=== PATIENT | male | born 1955 | race Caucasian/White ===

== ENCOUNTER 2019-07-20 10:57 | Inpatient (IN) | payer OTHER, SELFPAY ==
[2019-07-20] VITALS (22 sets, daily range): BP systolic 103–157; BP diastolic 59–79; PULSE 48–82; RESP 15–22; TEMP 36.7–37.6; O2SAT 8–99; BMI 22.8
--- NOTE | 2019-07-20 11:11 | ED_ITS ---
HPI - SOB/Dyspnea General: Chief Complaint: Fall Stated Complaint: FELL OFF LADDER AND RIB PAIN Time Seen by Provider: 07/20/19 11:02 History of Present Illness: HPI Narrative: 63-year-old male presents to the emergency room with complaint of shortness of breath after chest trauma yesterday. He was moving a truss down off of a building he was on a ladder this truss swung and caught him on the left side of his chest and he has been short of breath since then he did not seek medical care immediately. He thinks he may have been knocked out for a short period of time or just severely stunned. He did not actually strike his head he did get the wind knocked out of him. He is not had any significant hemoptysis but he is does smoke daily and he had a little bit of slightly blood-tinged mucus one time overnight. MD elicited complaint: shortness of breath, cough and pain with inspiration Pertinent past history: COPD Context: trauma/injury Timing: constant Severity: severe Exacerbating factors: exertion, movement, coughing and inspiration Relieving factors: rest Known history of: COPD Associated symptoms: Reports no associated symptoms; Deny abdominal pain, chest pain, fever(s), nausea, orthopnea or vomiting Review of Systems Const: Denies: fever, chills, body aches, change in appetite, fatigue or malaise ENMT: Denies: throat pain, ear pain, nasal discharge or nasal congestion Card: Denies: chest pain, edema, shortness of breath on exertion or shortness of breath when lying down Resp: Denies: shortness of breath, productive cough or non-productive cough GI: Denies: abdominal pain, nausea, vomiting, vomiting blood, coffee grounds in vomit, diarrhea, constipation, bloating, blood in stool or black tarry stool : Denies: flank pain, painful urination, urinary frequency or urinary urgency Skin/Breast: Denies: rash or itching PFSH ED PFSH: Medical History (Updated 07/21/19 @ 06:26 by Nigel Stover DO) Traumatic pneumothorax without open wound into thorax Social History Smoking and tobacco status: current every day smoker Physical Exam Const: COMMON NORMALS: no apparent distress GENERAL APPEARANCE: cooperative and comfortable ORIENTATION/CONSCIOUSNESS: Yes awake, Yes oriented to person, Yes oriented to place and Yes oriented to time HENMT: COMMON NORMALS: normocephalic, head/scalp atraumatic, hearing grossly normal bilaterally, external ears normal, EAC's normal, TM's normal bilaterally, nasal mucous membranes and turbinates normal, moist oral mucous membranes and oropharynx normal HEAD & SCALP: normocephalic and atraumatic NOSE: nasal mucous membranes and turbinates normal EXTERNAL EAR: Yes external ears normal EXTERNAL AUDITORY CANAL: EAC's normal TYMPANIC MEMBRANE: TM's normal bilaterally Eye: COMMON NORMALS: PERRL, EOMs intact bilaterally, conjunctivae normal and no scleral icterus CONJUNCTIVA: Yes conjunctivae normal PUPIL: Yes PERRL Neck/C-Spine: COMMON NORMALS: full ROM, no lymphadenopathy, supple and no JVD Lymph: LYMPHATIC: no lymphadenopathy noted and no lymphedema noted Resp: COMMON NORMALS: no use of accessory muscles AUSCULTATION: breath sounds absent on the right OTHER: Breath sounds clear on the left on the right they are absent with a few subcutaneous crackles present palpable pierce bcutaneous emphysema noted there is no deviation of the trachea. Chest x-ray shows large pneumothorax. Cardio: COMMON NORMALS: no JVD, regular rate, regular rhythm and no murmurs RATE: regular rate RHYTHM: regular rhythm GI: COMMON NORMALS: soft to palpation and no hepatosplenomegaly AUSCULTATION: Yes normoactive bowel sounds PALPATION: Yes soft, No tender, No guarding and Yes no hepatosplenomegaly Extremity: COMMON NORMALS: normal to inspection, normal capillary refill, no clubbing, cyanosis or edema, no calf tenderness and no pedal edema Neuro: SENSORIUM/ORIENTATION: Yes oriented to person, Yes oriented to place and Yes oriented to time Skin: COMMON NORMALS: no rashes or lesions noted GENERAL SKIN EXAM: no rashes or lesions noted Procedures Chest Tube Chest Tube 1: Chest Tube Location: right, anterior axillary line and fourth interspace Size of Tube (cm): 32 Chest Tube Prep: Yes betadine prep and sterile drapes applied Local Anesthetic: lidocaine 1% and with epi Amount of anesthesia used (mL): 7 Incision Made With: #10 blade Post Procedure: sutured to skin and sterile dressing applied Tube Drainage: none Post Procedure CXR?: Yes Patient Tolerated Procedure: Yes Procedural Sedation Indication: other (Chest tube placement) Presedation Evaluation: Patient awake alert and oriented answers questions appropriately. Expresses understanding wishes to proceed ASA Class: I Preparation: cupola worker applied, pulse oximeter, supplemental O2 applied, suction/airway equipment at bedside and IV secured Fentanyl: IV Fentanyl dose (mcg): 10 Midazolam: IV Midazolam dose (mg): 5 Patient Tolerated Procedure: well Complications: none Course Vital Signs: Vital signs: Vital Signs Temperature 97.6 F 07/21/19 04:00 Pulse Rate 46 L 07/21/19 04:00 Respiratory Rate 12 07/21/19 04:00 Blood Pressure 122/65 07/21/19 04:00 Pulse Oximetry 98 07/21/19 04:00 MDM - SOB/Dyspnea MDM Narrative: Medical decision making narrative: On initial exam patient had evidence of a pneumothorax on the right with subcutaneous air and absent breath sounds this is confirmed by chest x-ray. Patient was tolerating well but obviously would require chest tube to reinflate the lung. Procedural sedation was done as well as local 32 Bulgarian chest tube placed patient tolerated well post procedure x-ray shows a chest tube in good position with good reinflation of the long. Continued pain medications Dr. Ariza is agreed to accept the patient and monitor in the ICU. Lab Data: Labs: Lab Results 07/20/19 07/20/19 Range/Units 11:00 11:00 WBC 12.9 H (4.0-10.0) 10^3/ uL RBC 5.01 (4.1-5.3) 10^6/u L Hgb 15.8 (11.7-16.6) g/dL Hct 47.6 (42.0-52.0) % MCV 95.0 H (80-94) fL MCH 31.5 (28.0-34.0) pg MCHC 33.2 (30.0-36.0) g/dL RDW 12.8 (12.1-15.1) % Plt Count 216 (130-400) 10^3/c mm MPV 11.3 H (7.4-10.4) fL Neut % (Auto) 79.5 % Lymph % (Auto) 11.2 % [place] % (Auto) 8.7 % Eos % (Auto) 0.1 % Baso % (Auto) 0.2 % Neut # (Auto) 10.2 H (1.8-7.7) 10^3/u L Lymph # (Auto) 1.5 (0.8-4.8) 10^3/u L [place] # (Auto) 1.1 H (0.2-0.9) 10^3/u L Eos # (Auto) 0.0 (0.0-0.8) 10^3/u L Baso # (Auto) 0.0 (0.0-0.1) 10^3/u L Nucleated RBC % (a uto) 0 % Nucleated RBCs # 0.0 /100WBC Sodium 138 (136-145) mmol/L Potassium 3.9 (3.5-5.1) mmol/L Chloride 99 (98-107) mmol/L Carbon Dioxide 24 (22-29) mmol/L Anion Gap 18.9 (5-19) BUN 18 (8-23) mg/dL Creatinine 1.1 (0.7-1.2) mg/dL GFR Calculation 67.8 L (90-130) mL/min Glucose 120 H (65-115) mg/dL Calculated Osmolal ity 284 L (285-295) mOsm/k g Calcium 10.6 H (8.5-10.5) mg/dL Total Bilirubin 0.9 (0.15-1.2) mg/dL AST 51 H (0-40) U/L ALT 40 (0-41) U/L Alkaline Phosphata se 84 (40-130) IU/L Total Protein 7.6 (6.6-8.7) g/dL Albumin 4.7 (3.5-5.2) g/dL Globulin 2.9 (1.3-4.6) g/dL Discharge Plan Discharge Patient Disposition: Admitted As Inpatient Admit Provider: Martín Ariza Clinical Impression: Traumatic pneumothorax without open wound into thorax Condition: Stable Interventions: ED Discharge Assessment Last Done: 07/20/19 14:09 Discharge Date/Time: 07/20/19 16:19 Coding Level of Care Code ED Line Construction Superintendent for Morena Fwd Exam Comprehensive
--- NOTE | 2019-07-20 11:13 | XR_ITS ---
WS: [id number] CHEST XRAY TECHNIQUE: Portable chest. CLINICAL INFORMATION: dyspnea/cough COMPARISON: May 09, 2015 FINDINGS: Heart: Normal cardiac silhouette. Lungs: Large right pneumothorax with multiple right posterior rib fractures. Subcutaneous emphysema a long the right lateral chest wall. Left lung appears well aerated. Bones: Multiple right posterior rib fractures. Notified Nigel Stover DO at 07/20/2019 11:47 AM. XR/XR chest 1V portable [id number] IMPRESSION: 1. Large right pneumothorax with medial collapse of the right lung worse in th e right upper lobe. 2. Multiple right posterior rib fractures with subcutaneous emphysema.
--- NOTE | 2019-07-20 11:13 | CT_ITS ---
WS: [id number] CT HEAD TECHNIQUE: Noncontrast CT of the head obtained from the skullbase to the vertex. CLINICAL INFORMATION: LOC/trauma COMPARISON: None. DLP: 994.[address] scans at [facility] use at least one of these dose optimization techniques: automat ed exposure control; mA and/or kV adjustment per patient size (includes targeted exams where dose is matched to clinical indication); or iterative reconstruction. FINDINGS: No evidence of intracranial hemorrhage or mass effect. Ventricular system and basal cisterns are kaiser nt. Mild small vessel changes with mild parenchymal volume loss. No extra-axial fluid collections. No evidence of mass or mass effect. Normal hunter-white differentiation. Paranasal sinuses and mastoid air cells are well aerated. Subcutaneous emphysema in the right neck manasa rivera from known right large pneumothorax CT/CT head wo con* [id number] IMPRESSION: 1. No evidence of intracranial hemorrhage or mass effect. 2. Mild small vessel changes with mild parenchymal volume loss. 3. Subcutaneous emphysema in the right neck likely from known pneumothorax. 4. Soft tissue edema right parietal scalp. No visualized fractures.
--- NOTE | 2019-07-20 11:13 | ECG_ITS ---
Measurements Intervals [place] Rate: 60 P: 81 ND: 174 QRS: 90 QRSD: 118 T: 66 QT: 414 QTc: 414 SINUS RHYTHM POSSIBLE LEFT ATRIAL ENLARGEMENT [-0.1mV P WAVE IN V1/V2] INCOMPLETE RIGHT BUNDLE BRANCH BLOCK [90+ ms QRS DURATION, TERMINAL R IN V1/V2, 40+ ms S IN I/aVL/V4/V5/V6] No previous ECG available for comparison Electronically Signed On 07-21-2019 18:06:29 CDT by Juan Luis Fisher M.D. [email or web address] thomas
[2019-07-20 11:40] LABS: Basophils % 0.2 %; Eosinophils % 0.1 %; Hematocrit 47.6 % (42.0-52.0); Hemoglobin 15.8 g/dL (11.7-16.6); Lymphocytes # 1.5 10^3/uL (0.8-4.8); Lymphocytes % 11.2 %; Mean Corpuscular HGB Conc 33.2 g/dL (30.0-36.0); Mean Corpuscular Hemoglobin 31.5 pg (28.0-34.0); Mean Platelet Volume 11.3 fL (7.4-10.4); Monocytes # 1.1 10^3/uL (0.2-0.9); Monocytes % 8.7 %; Neutrophils # 10.2 10^3/uL (1.8-7.7); Neutrophils % 79.5 %; Nucleated Red Blood Cells % 0 %; Platelet Count 216 10^3/cmm (130-400); Red Blood Count 5.01 10^6/uL (4.1-5.3); Red Cell Distribution Width 12.8 % (12.1-15.1); White Blood Count 12.9 10^3/uL (4.0-10.0)
[2019-07-20 12:06] LABS: Alanine Aminotransferase 40 U/L (0-41); Albumin Level 4.7 g/dL (3.5-5.2); Alkaline Phosphatase 84 IU/L (40-130); Anion Gap 18.9 (5-19); Aspartate Amino Transferase 51 U/L (0-40); Blood Urea Nitrogen 18 mg/dL (8-23); Calcium 10.6 mg/dL (8.5-10.5); Carbon Dioxide 24 mmol/L (22-29); Chloride 99 mmol/L (98-107); Creatinine Clr Calc Pharmacy 71.5477; Globulin 2.9 g/dL (1.3-4.6); Glomerular Filtration Rate 67.8 mL/min (90-130); Glucose 120 mg/dL (65-115); Osmolality Calculated 284 mOsm/kg (285-295); Potassium 3.9 mmol/L (3.5-5.1); Sodium 138 mmol/L (136-145); Total Bilirubin 0.9 mg/dL (0.15-1.2); Total Protein 7.6 g/dL (6.6-8.7)
[2019-07-20] MEDS: fentaNYL 50 mcg/mL INJ 2mL 100 MCG IVP (12:22)
[2019-07-20] MEDS: midazolam 1 mg/mL INJ 2 mL 4 MG IVP (12:23)
--- NOTE | 2019-07-20 12:24 | XR_ITS ---
WS: [id number] CHEST XRAY TECHNIQUE: Portable chest. CLINICAL INFORMATION: post chest tube - pneumothorax COMPARISON: July 20, 2019 FINDINGS: Interval placement of right chest tube in good position. Reexpansion of the majority of the right lung. Tiny residual right anterior medial and lateral pneumothorax. Subcutaneous emphysema rig ht lateral chest wall. Multiple right posterior rib fractures. Small right pleural effusion. Subsegme ntal atelectasis right lung base. XR/XR chest 1V portable [id number] IMPRESSION: 1. Interval placement of right chest tube with reexpansion right lung. 2. Tiny residual right anterior medial and lateral pneumothorax. 3. Multiple right posterior rib fractures. 4. Subcutaneous emphysema
[2019-07-20] MEDS: morphine 4 mg/mL SDV 1 mL IVP ×3 (13:36→23:41)
[2019-07-20] MEDS: D5-NS 0.45% + KCL 20 mEq 20 MEQ/1,000 ML BAG 100 MEQ IV (14:50)
--- NOTE | 2019-07-20 15:40 | PM.HP ---
Providers/Chief Complaint Admitting Physician: Martín Ariza MD Chief Complaint: PNEUMOTHORAX History of Present Illness Murali Clarke is a 63 year old male who presented to the emergency department earlier today with complaints of shortness of breath and substantial right-sided chest discomfort. Apparently, while working on bringing down a building yesterday, he fell from a ladder after he was struck in the right side by a truss. He states he is not certain that he lost consciousness though he did note he was confused for short time. No history of hemoptysis though worsening and intense right-sided chest discomfort. Breathlessness became worse throughout the evening and therefore he presented today. He was found to have multiple posterior rib fractures from my personal review appears to be ribs 5 through 8. He had at least 50% right pneumothorax was treated with a large bore chest tube by Dr. Rosenthal. I was consulted for chest tube management of the traumatic pneumothorax which was resolved by the thoracostomy tube placement. No prior history for known lung disease. No history for pneumothorax. He does smoke substantially. No other substantial hospitalizations. He states he does utilize several herbs including mushrooms. He does smoke occasional marijuana. Presently the time of my exam, he is resting comfortably in the ICU. No substantial dyspnea. O2 saturation is good. Chest tube was waterseal though I had it placed to Pleur-evac suction. I have personally viewed the chest x-ray upon admission as well as the post thoracostomy tube placement study. Review of Systems Const: Denies: fever, chills, change in appetite, change in weight, fatigue or night sweats Eyes: Denies: change in vision or blurry vision ENMT: Denies: painful swallowing or hoarseness Card: Denies: chest pain, palpitations, irregular heart rhythm or edema Resp: Reports: shortness of breath (Except with the recent trauma yesterday. Respiratory status is much improved.); Denies: productive cough or coughing up blood GI: Denies: abdominal pain, nausea, vomiting, difficulty swallowing, heartburn/indigestion or change in bowel habits : Denies: difficulty urinating, painful urination, urinary frequency, urinary urgency or urinary hesitancy Musc: Denies: extremity pain or extremity swelling Skin/Breast: Denies: rash Neuro: Denies: headache, numbness in extremities, weakness in extremities or changes in sensation Psych: Denies: anxiety, depression or change in appetite Endo: Denies: excessive urination, excessive thirst or cold intolerance Mac/Lymph: Denies: easy bruising, easy bleeding, petechiae or enlarged lymph nodes Medications/Allergies Home Medications Medication Instructions Recorded Confirmed Last Taken Type No Known Home Medications 07/20/19 07/20/19 Unknown History Allergies Allergy/AdvReac Type Severity Reaction Status Date / Time No Known Allergies Allergy Verified 07/20/19 11:14 PFSH Acute PFSH: Medical History (Updated 07/20/19 @ 15:44 by Martín Ariza MD) Traumatic pneumothorax without open wound into thorax Social History Smoking and tobacco status: current every day smoker Vitals/I&O/Wt Last Vital Signs Temp 98.6 F 07/20/19 14:15 Pulse 59 L 07/20/19 15:33 Resp 16 07/20/19 15:31 BP 132/70 07/20/19 15:00 Pulse Ox 96 07/20/19 15:31 Weight last 48 hrs Weight 159 lb Physical Exam Const: COMMON NORMALS: oriented x3 and alert ORIENTATION/CONSCIOUSNESS: Yes oriented to person, Yes oriented to place and Yes oriented to time HENMT: COMMON NORMALS: normocephalic HEAD & SCALP: normocephalic; no cranial bruits Neck/C-Spine: COMMON NORMALS: full ROM, supple, no JVD and no carotid bruits GENERAL: Yes trachea midline CERVICAL SPINE: Yes cervical ROM normal Chest: COMMONS NORMALS: inspection of chest normal and palpation of chest normal OTHER: There is just a bit of subcutaneous emphysema on the right lateral and anterior chest wall, particularly superiorly in the infraclavicular region. This did extend to the base of the neck the previously noted radiographic studies. Trachea is midline. Resp: COMMON NORMALS: normal respiratory effort, no use of accessory muscles, clear to auscultation bilaterally and percussion normal EFFORT & INSPECTION: Yes able to speak in complete sentences and Yes symmetric chest movement AUSCULTATION: clear to auscultation bilaterally PERCUSSION: percussion normal Cardio: COMMON NORMALS: no JVD, regular rate, regular rhythm, S1 normal heart sound, S2 normal heart sound, no gallops, no murmurs, no rub and peripheral pulses 2+ throughout JUGULAR VENOUS DISTENTION: no JVD RATE: regular rate RHYTHM: regular rhythm HEART SOUNDS: S1 normal and S2 normal PERIPHERAL PULSES: pulses 2+ throughout Neuro: COMMON NORMALS: oriented x3, no focal motor deficits and no sensory deficits noted SENSORIUM/ORIENTATION: Yes alert, Yes oriented to person, Yes oriented to place and Yes oriented to time GAIT: Yes normal gait Data : 07/20/19 11:00 07/20/19 11:00 A&P Assessment and plan (1) Traumatic pneumothorax without open wound into thorax: 50% traumatic right pneumothorax following being struck by a building truss yesterday during a building demolition. Dr. Stover placed in a large bore right chest tube with resolution of his pneumothorax. Plan: Chest tube to Pleur-evac suction Chest x-ray in a.m. Toradol 30 mg IV every 6 hours as needed pain Protonix 40 mg daily SCDs to lower extremities Incentive spirometry Out of bed in chair I will assess chest x-ray tomorrow and assess for air leak. Plan to transfer to [facility] consider placing chest tube to waterseal. Greatly appreciate the assistance and expertise of Dr. Stover. Status: Acute Attestations Medical Necessity Statement*: Right pneumothorax with multiple rib fractures Time Spent in Patient Care: Greater than 35 minutes Coding Level of Care Code Acute Packer Sausage And Wiener for Morena Fwfariha Exam Detailed Diagnoses Traumatic pneumothorax without open wound into thorax S27.0XXA
[2019-07-20] MEDS: ketorolac 30 mg/mL INJ IVP (16:37)
[2019-07-20 20:40] LABS: Blood Urine Neg (Negative); Glucose Urine UA Norm (Normal); Ketones Urine 2+ (Negative); Protein Urine Neg (Negative); Specific Gravity, Urine 1.025 (1.005-1.030); Urine Appearance Clear (CLEAR); Urine Color Yellow (Yellow); pH Urine 5 (5-7)
[2019-07-20 20:41] LABS: Add Urine Culture? Yes; Add Urine Microscopic? YES; Bacteria Urine 4+; Bilirubin Urine 1+ (NEGATIVE); Leukocyte Esterase Urine Negative (Negative); Nitrate Urine Positive (Negative); Squamous Epithelial Cell Urine 0-4 (0-5); Urobilinogen Urine Norm (Negative); WBC Urine 0-4 /hpf (0-5)
[2019-07-21] VITALS (12 sets, daily range): BP systolic 111–170; BP diastolic 64–86; PULSE 46–89; RESP 12–23; TEMP 36.4–37.1; O2SAT 92–98
[2019-07-21] MEDS: D5-NS 0.45% + KCL 20 mEq 20 MEQ/1,000 ML BAG 100 MEQ IV ×2 (00:44→15:46)
[2019-07-21 05:16] LABS: Basophils % 0.3 %; Eosinophils # 0.1 10^3/uL (0.0-0.8); Eosinophils % 0.7 %; Hematocrit 41.7 % (42.0-52.0); Lymphocytes # 2.5 10^3/uL (0.8-4.8); Lymphocytes % 23.9 %; Mean Corpuscular HGB Conc 33.6 g/dL (30.0-36.0); Mean Corpuscular Hemoglobin 32.5 pg (28.0-34.0); Mean Corpuscular Volume 96.8 fL (80-94); Mean Platelet Volume 11.8 fL (7.4-10.4); Monocytes # 1.1 10^3/uL (0.2-0.9); Monocytes % 10.3 %; Neutrophils # 6.7 10^3/uL (1.8-7.7); Neutrophils % 64.5 %; Nucleated Red Blood Cells % 0 %; Platelet Count 164 10^3/cmm (130-400); Red Blood Count 4.31 10^6/uL (4.1-5.3); Red Cell Distribution Width 12.7 % (12.1-15.1); White Blood Count 10.4 10^3/uL (4.0-10.0)
[2019-07-21 05:36] LABS: Anion Gap 15.5 (5-19); Blood Urea Nitrogen 15 mg/dL (8-23); Calcium 9.7 mg/dL (8.5-10.5); Carbon Dioxide 25 mmol/L (22-29); Chloride 97 mmol/L (98-107); Glomerular Filtration Rate 85.5 mL/min (90-130); Glucose 132 mg/dL (65-115); Osmolality Calculated 274 mOsm/kg (285-295); Potassium 4.5 mmol/L (3.5-5.1); Sodium 133 mmol/L (136-145)
--- NOTE | 2019-07-21 06:00 | XR_ITS ---
WS: [id number] CHEST XRAY TECHNIQUE: Portable chest. CLINICAL INFORMATION: Status post traumatic pneumothorax COMPARISON: July 20, 2019 FINDINGS: Heart: Normal cardiac silhouette. Lungs: Right chest tube in place. Small anterior medial and right apical lateral pneumothorax. Subcut aneous emphysema right lateral chest wall. Small right pleural effusion. Bones: Multiple right posterior rib fractures. XR/XR chest 1V portable [id number] IMPRESSION: 1. Right chest tube in place with small residual anterior medial and apical la teral pneumothorax. 2. Small right effusion. 3. Subcutaneous emphysema right lateral chest wall with multiple posterior rib fractures.
--- NOTE | 2019-07-21 06:07 | PM.PN ---
Subjective Subjective: Interval history: First postop day status post a right chest tube placement for several rib fractures on the right following a fall from a ladder being struck with a building truss. Pain appears to be under good control. Good use of incentive spirometry. I reviewed chest x-ray this morning. The chest tube has backed out slightly though still has been good position. Some overall haziness related to probably decreased aeration though no efra infiltrates or effusion. Vital signs stable afebrile. No air leak noted on Pleur-evac. Has been on suction overnight. I have personally reviewed the chest x-ray this morning. Vitals/I&O/Wt Last Vital Signs Temp 97.6 F 07/21/19 04:00 Pulse 46 L 07/21/19 04:00 Resp 12 07/21/19 04:00 BP 122/65 07/21/19 04:00 Pulse Ox 98 07/21/19 04:00 07/20/19 07/20/19 07/21/19 14:59 22:59 06:59 Intake Total 720 / 720 1230 / 1950 Output Total 30 / 30 Balance 720 / 720 1200 / 1920 Weight last 48 hrs Weight 159 lb Physical Exam Chest: COMMONS NORMALS: inspection of chest normal Resp: COMMON NORMALS: normal respiratory effort, no retractions and no use of accessory muscles OTHER: Slightly decreased breath sounds on the right though overall fairly clear. Data : 07/21/19 04:35 07/21/19 04:35 A&P Assessment and plan (1) Traumatic pneumothorax without open wound into thorax: Status post multiple right-sided rib fractures after fall with traumatic pneumothorax, now resolved with chest tube. Plan: Will place to [facility] and transfer to [facility] continue pulmonary toilet Chest x-ray in a.m. and consider discontinuing chest tube. Status: Acute Attestations Medical Necessity Statement*: Traumatic pneumothorax following multiple rib fractures after fall Time Spent in Patient Care: 16 - 35 minutes Coding Level of Care Code Acute Bar Machine Operator Production for Morena Allen Diagnoses Traumatic pneumothorax without open wound into thorax S27.0XXA
[2019-07-21] MEDS: HYDROcodone-acetaminophen 5-325 mg Tablet 1 TAB PO ×4 (07:25→21:35)
[2019-07-21] MEDS: pantoprazole DR 40 mg Tablet PO (08:47)
--- NOTE | 2019-07-21 09:20 | PC.NURSE ---
Pt alert and oriented to self, place, situation and time. He is very pleasant and engaging. He speaks of the bible and Andrea. Gilda is the first heifer not in bull field Lilliam, love and hope are part of the equations that makes up the tetra hexagon. It is the basis for all math, you know, He [Andrea] was the greatest of mathematicians, he was the Arnoldo of [place]. Andrea was algebra These quotations are just a part of his conversation/flights of fancy
--- NOTE | 2019-07-21 09:35 | PC.NURSE ---
Pt's son called to check on him. He and the rest of the family per him are concerned about the pt's shoulder. , the son, says his father says it hurts and he is not a complainer, the family is concerned about long bone injuries. Informed son I will inform physician of their concern.
--- NOTE | 2019-07-21 09:59 | PC.NURSE ---
Report faxed to [employer]. Further verbal report given to KRYSTA Golden.
--- NOTE | 2019-07-21 10:31 | PC.NURSE ---
Pt transferred to [facility] via [facility]. ALl belongings with pt.Further report given to ASYA Dawn.
--- NOTE | 2019-07-21 17:33 | XR_ITS ---
WS: [id number] CHEST XRAY TECHNIQUE: Portable chest. CLINICAL INFORMATION: chest tube drainage COMPARISON: July 21, 2019 FINDINGS: Heart: Normal cardiac silhouette. Lungs: Right chest tube slightly retracted since yesterday. Small right apical and lateral pneumothor ax increased along the right lower lobe. Subcutaneous emphysema along the right lateral chest wall. S mall right pleural effusion. Multiple right posterior rib fractures. Subcutaneous emphysema right nec k. Bones: Multiple posterior rib fractures. XR/XR chest 1V portable [id number] IMPRESSION: 1. Right chest tube slightly retracted since yesterday with slightly increased right pneumothorax along the right upper lobe and right lower lobe laterally. 2. Small right pleural effusion slightly increased. 3. Subcutaneous emphysema along the right lateral chest wall and lower neck.
--- NOTE | 2019-07-21 17:35 | XR_ITS ---
WS: [id number] SHOULDER RIGHT TECHNIQUE: 3 views of the right shoulder CLINICAL INFORMATION: shoulder pain and stiffness COMPARISON: None. FINDINGS: Normal acromioclavicular joint. Normal glenohumeral joint. Acromion is normal in appearance. Normal g lenoid. Multiple right posterior rib fractures. Right apical chest tube. Small right apical and lateral pneum othorax. Subcutaneous emphysema lower neck and right lateral chest wall. XR/XR shoulder RT min 2V* [id number] IMPRESSION: No acute shoulder findings.
--- NOTE | 2019-07-21 17:39 | P.PN_ITS ---
Subjective Subjective: Interval history: Complains of right-sided chest wall pain as expected. Also complaining of shoulder pain and does have limited range of motion. There is now noted to be 600 cc of bloody effusion in the Pleur-evac which is been on waterseal. As I compare this morning's x-ray, I do notice there was some overlying haziness in the right hemithorax, which may represent undrained bloody effusion which now has drained as he is increased activity. We have just checked his vital signs, blood pressure 126/59 with a heart rate of 100. O2 saturation 95% on room air. Slight wheezing on the right side but relatively clear, left side is clear with auscultation. Vitals/I&O/Wt Last Vital Signs Temp 97.7 F 07/21/19 15:46 Pulse 88 07/21/19 15:46 Resp 18 07/21/19 15:46 BP 111/69 07/21/19 15:46 Pulse Ox 96 07/21/19 15:46 07/21/19 07/21/19 07/21/19 06:59 14:59 22:59 Intake Total 1230 / 1950 1300 / 1300 Output Total 1175 / 1175 200 / 1375 Balance 1200 / 1920 125 / 125 -200 / -75 Weight last 48 hrs Weight 159 lb Physical Exam Resp: COMMON NORMALS: clear to auscultation bilaterally (Very slightly diminished in the right base posteriorly) AUSCULTATION: clear to auscultation bilaterally (Very slightly diminished in the right base posteriorly) and wheezes (Mild on the right side) expiratory wheezes and right lower Data : 07/21/19 04:35 07/21/19 04:35 A&P Assessment and plan (1) Traumatic pneumothorax without open wound into thorax: We are going to obtain another chest x-ray to assess for any further fluid collection or adequate drainage of what may have been a retained hemothorax this morning. Also can obtain a right shoulder series to assess for potential injury related to the trauma from his fall and being struck by a truss. CBC. Chest x-ray in a.m. Status: Acute Attestations Medical Necessity Statement*: Multiple rib fractures from trauma along with pneumothorax and delayed hemothorax Time Spent in Patient Care: 16 - 35 minutes Coding Level of Care Code Acute Xray Tech for Chg Fwd Diagnoses Traumatic pneumothorax without open wound into thorax S27.0XXA
[2019-07-21] MEDS: morphine 4 mg/mL SDV 1 mL IVP (18:04)
[2019-07-21 18:58] LABS: Basophils % 0.2 %; Eosinophils % 0.3 %; Hematocrit 43.9 % (42.0-52.0); Hemoglobin 14.1 g/dL (11.7-16.6); Lymphocytes # 1.7 10^3/uL (0.8-4.8); Lymphocytes % 11.6 %; Mean Corpuscular HGB Conc 32.1 g/dL (30.0-36.0); Mean Corpuscular Hemoglobin 31.7 pg (28.0-34.0); Mean Corpuscular Volume 98.7 fL (80-94); Mean Platelet Volume 11.5 fL (7.4-10.4); Monocytes # 1.3 10^3/uL (0.2-0.9); Monocytes % 8.9 %; Neutrophils # 11.2 10^3/uL (1.8-7.7); Neutrophils % 78.6 %; Nucleated Red Blood Cells % 0 %; Platelet Count 186 10^3/cmm (130-400); Red Blood Count 4.45 10^6/uL (4.1-5.3); Red Cell Distribution Width 12.8 % (12.1-15.1); White Blood Count 14.2 10^3/uL (4.0-10.0)
[2019-07-21 20:47] LABS: Glucose Point of Care 163 mg/dL (70-110)
[2019-07-22] VITALS (19 sets, daily range): BP systolic 117–179; BP diastolic 63–90; PULSE 18–66; RESP 13–22; TEMP 36.4–37.4; O2SAT 93–100
[2019-07-22] MEDS: HYDROcodone-acetaminophen 5-325 mg Tablet 1 TAB PO (03:45)
[2019-07-22] MEDS: ketorolac 30 mg/mL INJ IVP ×2 (03:56→20:36)
--- NOTE | 2019-07-22 06:00 | XR_ITS ---
WS: [id number] CHEST XRAY TECHNIQUE: Portable chest. CLINICAL INFORMATION: Status post traumatic pneumothorax with rib fractures; chest tube now to nunez eal overnight COMPARISON: July 21, 2019 FINDINGS: Right chest tube retracted from previous with sidehole extrapleural. Small right apical and lateral pneumothorax. Small right pleural effusion. Numerous right posterior rib fractures. Subcutan eous emphysema right lower neck and lateral chest wall. XR/XR chest 1V portable [id number] IMPRESSION: 1. Right chest tube to water seal. 2. Persistent right apical and lateral small pneumothorax. 3. Multiple right posterior rib fractures. 4. Small right pleural effusion.
--- NOTE | 2019-07-22 07:04 | P.PN_ITS ---
Subjective Subjective: Interval history: Up in chair on rounds. Appears to have no specific complaints. Unfortunately, his chest x-ray shows that his chest tube has become further retracted and there is clearly obviously undrained fluid, probably blood dependently. This will need to be corrected. Vitals/I&O/Wt Last Vital Signs Temp 98.1 F 07/22/19 04:00 Pulse 60 07/22/19 04:00 Resp 20 H 07/22/19 04:00 BP 146/66 07/22/19 04:00 Pulse Ox 96 07/22/19 04:00 07/21/19 07/22/19 07/22/19 22:59 06:59 14:59 Intake Total 100 / 1400 1000 / 2400 Output Total 945 / 2120 1300 / 3420 Balance -845 / -720 -300 / -1020 Weight last 48 hrs Weight 159 lb Physical Exam 2 Resp: AUSCULTATION: diminished lung sounds on the right in the lower lung jack Data : 07/21/19 18:05 07/21/19 04:35 A&P Assessment and plan (1) Hemothorax on right: Retained hemothorax on right with ineffective drainage from recurrent chest tube which appears to have dislodged Will plan to replace chest tube and possible form right thoracoscopy this aftern oon. Rationale, details and risk carefully and frankly discussed with Mr. Clarke. Status: Acute Attestations Medical Necessity Statement*: Retained hemothorax status post multiple rib fractures from trauma Time Spent in Patient Care: 16 - 35 minutes Coding Level of Care Code Acute Seating Captain for Morena Allen Diagnoses Hemothorax on right J94.2
--- NOTE | 2019-07-22 10:58 | PC.RESP ---
Smoking Cessation information mailed to patient and a schedule of out-pt classes.
[2019-07-22] MEDS: D5-NS 0.45% + KCL 20 mEq 20 MEQ/1,000 ML BAG 100 MEQ IV (11:22)
[2019-07-22 12:57] LABS: Basophils % 0.2 %; Eosinophils # 0.1 10^3/uL (0.0-0.8); Eosinophils % 0.7 %; Hematocrit 35.8 % (42.0-52.0); Hemoglobin 11.6 g/dL (11.7-16.6); Lymphocytes # 1.7 10^3/uL (0.8-4.8); Lymphocytes % 19.6 %; Mean Corpuscular HGB Conc 32.4 g/dL (30.0-36.0); Mean Corpuscular Hemoglobin 31.4 pg (28.0-34.0); Mean Platelet Volume 11.4 fL (7.4-10.4); Monocytes % 10.9 %; Neutrophils # 5.9 10^3/uL (1.8-7.7); Neutrophils % 68.4 %; Nucleated Red Blood Cells % 0 %; Platelet Count 174 10^3/cmm (130-400); Red Blood Count 3.69 10^6/uL (4.1-5.3); Red Cell Distribution Width 12.6 % (12.1-15.1); White Blood Count 8.7 10^3/uL (4.0-10.0)
[2019-07-22 13:03] LABS: INR 1.03 (0.8-1.2)
[2019-07-22 13:04] LABS: Partial Thromboplastin Time 30.2 SECONDS (23.9-36.7)
--- NOTE | 2019-07-22 13:08 | P.ANESASSM_ITS ---
Pre-Anesthetic Assessment Pre-Anesthetic Assessment: Height/Weight: Height 1.78 m Weight 72.121 kg Temp Pulse Resp BP Pulse Ox 98.3 F 60 18 146/68 98 07/22/19 12:00 07/22/19 12:00 07/22/19 12:00 07/22/19 12:00 07/22/19 12:00 Preop Diagnosis: Rib fractures Proposed Procedure: Operation Date: 07/22/19 13:50 Proposed Procedures p Chest Tube Insertion with possible thoracoscopy right side(Right) - Martín Ariza MD Familial anesthetic complications: no trouble with anesthesia Was Beta Edvin taken within 24 hours: N/A Last intake: Intake onion and black coffee at 0320 am Last Liquid Date 07/22/19 Last Liquid Time 03:00 Last Solid Date 07/21/19 Last Solid Time 18:00 Social: Social History: Tobacco and No alcohol Packs per day: 1 ppd Exam: Pre-Anes Outpt Exam: alert, oriented x 3, clear to auscultation bilaterally and regular rate & rhythm Additional Exam Findings (including area of procedure): dminisehd on R Airway: Cervical ROM: WNL MP: 2 Dentition: Chipped Additional comments: missing Pulmonary: Pulmonary: COPD Comments: rib fractures CV/HEM: CV/HEM: None reported : : None reported Hepatic: Hepatic: None reported GI: GI: None reported Metabolic: Metabolic: None reported Musc/skel: Musc/skel: None reported Neuropsych: Neuropsych: None reported Anesthetic Plan: ASA status: 2 Anesthesia: General, MAC and Regional (specify below) Other: epidural with MAC, may convert to general if needs thoracsopy Risk of > 500 ml blood loss (7ml/kg in children): No Meds/Allergies Current Medications: Current Medications Generic Name Dose Route Start Last Admin Trade Name Freq PRN Reason Stop Dose Admin Hydrocodone Bitart /Acetaminophen 1 tab 07/21/19 06:14 07/22/19 03:45 [place] 5-325 Mg PO 1 tab Q4H PRN Administration MODERATE PAIN Potassium Chloride /Dextrose/Sod Cl 20 meq in 1,000 m ls @ 100 mls/hr 07/20/19 14:05 07/22/19 11:22 D5-Ns 0.45% + Estuardo l 20 Meq IV 100 mls/hr .Q10H BELKIS Administration Ketorolac Trometha mine 30 mg 04/20/20 15:25 07/22/19 03:56 Toradol IVP 07/25/19 15:24 30 mg Q6H PRN Administration MODERATE PAIN Morphine Sulfate 4 mg 07/20/19 13:30 07/21/19 18:04 Morphine IVP 4 mg Q4H PRN Administration SEVERE PAIN Pantoprazole Sodiu m 40 mg 07/21/19 09:00 07/21/19 08:47 Protonix PO 40 mg DAILY BELKIS Administration PFSH Anesthesia PFSH: Medical History (Updated 07/22/19 @ 07:05 by Martín Ariza MD) Traumatic pneumothorax without open wound into thorax Social History Smoking and tobacco status: current every day smoker Data Anesthesia CBC & Chem 7: 07/22/19 12:39 07/21/19 04:35 Other Labs: Laboratory Results - last 48 hr 07/20/19 07/21/19 07/21/19 17:30 04:35 04:35 WBC 10.4 H RBC 4.31 Hgb 14.0 Hct 41.7 L MCV 96.8 H MCH 32.5 MCHC 33.6 RDW 12.7 Plt Count 164 MPV 11.8 H Neut % (Auto) 64.5 Lymph % (Auto) 23.9 [place] % (Auto) 10.3 Eos % (Auto) 0.7 Baso % (Auto) 0.3 Neut # (Auto) 6.7 Lymph # (Auto) 2.5 [place] # (Auto) 1.1 H Eos # (Auto) 0.1 Baso # (Auto) 0.0 Nucleated RBC % (auto) 0 Nucleated RBCs # 0.0 PT INR APTT Sodium 133 L Potassium 4.5 Chloride 97 L Carbon Dioxide 25 Anion Gap 15.5 BUN 15 Creatinine 0.9 GFR Calculation 85.5 L Glucose 132 H POC Glucose Calculated Osmolality 274 L Calcium 9.7 Urine Color Yellow Urine Appearance Clear Urine pH 5 Ur Specific [place] 1.025 Urine Protein Neg Urine Glucose (UA) Norm Urine Ketones 2+ H Urine Blood Neg Urine Nitrate Positive H Urine Bilirubin 1+ H Urine Urobilinogen Norm Ur Leukocyte Esterase Negative Urine RBC None Urine WBC 0-4 H Ur Squamous Epith Cells 0-4 H Urine Bacteria 4+ H Blood Type Rho(D) Type Antibody Screen Crossmatch 07/21/19 07/21/19 07/22/19 18:05 20:43 07:27 WBC 14.2 H RBC 4.45 Hgb 14.1 Hct 43.9 MCV 98.7 H MCH 31.7 MCHC 32.1 RDW 12.8 Plt Count 186 MPV 11.5 H Neut % (Auto) 78.6 Lymph % (Auto) 11.6 [place] % (Auto) 8.9 Eos % (Auto) 0.3 Baso % (Auto) 0.2 Neut # (Auto) 11.2 H Lymph # (Auto) 1.7 [place] # (Auto) 1.3 H Eos # (Auto) 0.0 Baso # (Auto) 0.0 Nucleated RBC % (auto) 0 Nucleated RBCs # 0.0 PT INR APTT Sodium Potassium Chloride Carbon Dioxide Anion Gap BUN Creatinine GFR Calculation Glucose POC Glucose 163 Calculated Osmolality Calcium Urine Color Urine Appearance Urine pH Ur Specific [place] Urine Protein Urine Glucose (UA) Urine Ketones Urine Blood Urine Nitrate Urine Bilirubin Urine Urobilinogen Ur Leukocyte Esterase Urine RBC Urine WBC Ur Squamous Epith Cells Urine Bacteria Blood Type O Positive Rho(D) Type Positive Antibody Screen Negative Crossmatch See Detail 07/22/19 07/22/19 12:39 12:39 WBC 8.7 RBC 3.69 L Hgb 11.6 L Hct 35.8 L MCV 97.0 H MCH 31.4 MCHC 32.4 RDW 12.6 Plt Count 174 MPV 11.4 H Neut % (Auto) 68.4 Lymph % (Auto) 19.6 [place] % (Auto) 10.9 Eos % (Auto) 0.7 Baso % (Auto) 0.2 Neut # (Auto) 5.9 Lymph # (Auto) 1.7 [place] # (Auto) 1.0 H Eos # (Auto) 0.1 Baso # (Auto) 0.0 Nucleated RBC % (auto) 0 Nucleated RBCs # 0.0 PT 13.80 H INR 1.03 APTT 30.2 Sodium Potassium Chloride Carbon Dioxide Anion Gap BUN Creatinine GFR Calculation Glucose POC Glucose Calculated Osmolality Calcium Urine Color Urine Appearance Urine pH Ur Specific [place] Urine Protein Urine Glucose (UA) Urine Ketones Urine Blood Urine Nitrate Urine Bilirubin Urine Urobilinogen Ur Leukocyte Esterase Urine RBC Urine WBC Ur Squamous Epith Cells Urine Bacteria Blood Type Rho(D) Type Antibody Screen Crossmatch Micro: Microbiology 07/20/19 17:30 Urine Culture - Final Urine,Clean Catch Cardiac Studies: No Data to Display
[2019-07-22 13:18] LABS: Anion Gap 12.8 (5-19); Blood Urea Nitrogen 13 mg/dL (8-23); Calcium 9.9 mg/dL (8.5-10.5); Carbon Dioxide 29 mmol/L (22-29); Chloride 100 mmol/L (98-107); Glomerular Filtration Rate 75.7 mL/min (90-130); Glucose 141 mg/dL (65-115); Osmolality Calculated 283 mOsm/kg (285-295); Potassium 4.8 mmol/L (3.5-5.1); Sodium 137 mmol/L (136-145)
[2019-07-22] MEDS: sodium chloride 0.9% 1,000 ML 30 ML IV (13:26)
--- NOTE | 2019-07-22 15:16 | XR_ITS ---
WS: [id number] CHEST XRAY TECHNIQUE: Portable chest. CLINICAL INFORMATION: chest tube insertion COMPARISON: July 22, 2019 FINDINGS: Heart: Cardiomegaly Lungs: 2 right chest tubes in place. Lower right chest tube is new from previous. Cephalad chest tube has been advanced. Subcutaneous emphysema right lower chest wall and lower neck. Multiple right post erior rib fractures. Tiny residual right apical lateral pneumothorax. This appears improved. Small ri ght pleural effusion with interstitial edema right midlung and right lung base. Subsegmental atelecta sis right lower lobe. Bones: Normal visualized bony structures. XR/XR chest 1V portable [id number] IMPRESSION: 1. Interval reposition of existing chest tube with new right chest tube. Impro jaja tiny right apical and lateral residual pneumothorax. 2. Multiple right posterior rib fractures. 3. Small right pleural effusion with interstitial edema and right basilar atel ectasis.
[2019-07-22] MEDS: lidocaine 1% INJ 20 mL SUBCUT (15:23)
--- NOTE | 2019-07-22 16:01 | SUR.PHASEI ---
1556 PATIENT TO PACU AT THIS TIME. RR EVEN AND UNLABORED. SPO2 100% ON SIMPLE MASK AT 8L. CHEST TUBE IN PLACE TO RIGHT LOWER ANTERIOR CHEST. DRAINING TO ATRIUM, CONNECTED TO SUCTION. PATIENT REMAINS ASLEEP, PROTECTING AIRWAY. NOT RESPONDING TO VERBAL STIMULI AT THIS TIME.
--- NOTE | 2019-07-22 16:04 | PM.OP ---
Operative Report Date of procedure: July 22, 2019 Pre-op Diagnosis: Rib fractures, retained hemothorax Post-op diagnosis: same Procedure Done: Right thoracostomy tube placement x2, 28 [place] Specimens removed/disposition: 150 cc retained hemothorax recovered Pathology: none sent Surgeon: Martín Ariza Anesthesia: MAC and Local Estimated blood loss (mL): 10 Condition: stable Disposition: PACU Brief History: Mr. Clarke is a 63-year-old gentleman who was admitted posterior right-sided rib fractures following a fall from a ladder being struck in the side by a truss during a building demolition. Initially, large bore chest tube was placed in the emergency department for a pneumothorax. He is maintained small pneumothorax sets no clearly improved though he has had further collection of fluid which appears to be blood. I have recommended replacement of his original chest tube with 2 new tubes for hopeful further improved pleural drainage. Rationale was carefully discussed. Proper consents reviewed and signed. Procedure: Mr. Clarke was taken operative room theater and carefully positioned. He received IV conscious sedation with continuous anesthesia monitoring. His entire right side was sterilely prepped and draped. Initially, 1% lidocaine with infiltrated in the anterior axillary line with approximately the sixth interspace. #15 scalpel utilized to incise the skin down into the intercostal musculature. Small hemostat was utilized to enter into the pleural cavity were separately a trocar 28 Burkinan chest tube was placed. This was connected to Pleur-evac suction with return of approximately 100 cc of retained hemothorax. Chest x-ray at that time revealed good, low tube placement though I felt the patient would benefit from having a more apical tube as well. I subs removed his partially dislodged large original placed chest tube and placed a occlusive dressing over this large chest tube site. Lidocaine was utilized to infiltrate again the anterior axillary line at approximately fourth intercostal space and #15 scalpel utilized to incise the skin down to the musculature. Small hemostat utilized to enter the pleural cavity where a second 28 Burkinan drain was placed toward the apex. This was connected Pleur-evac suction as well. Follow-up chest x-ray reveals good tube placement, 1 apically and another relatively low at the area of retained fluid. There is no air leak. Total recovered hemothorax just over 200 cc. He was separately transferred to the PACU with stable vital signs, conversing well, and with minimal discomfort. We will continue chest tubes to Pleur-evac suction for now and follow-up with a chest x-ray in a.m.
--- NOTE | 2019-07-22 16:40 | SUR.PHASEI ---
1624 PATIENT TO MED SURG AT THIS TIME FROM PACU. RR EVEN AND UNLABORED. CHEST TUBE X2 IN PLACE TO RIGHT UPPER ANTERIOR CHEST. ATRIUM IN PLACE. PATIENT AMBULATORY FROM [facility] TO BED ON MED SURG. ATRIUM CONNECTED TO SUCTION.
[2019-07-22] MEDS: morphine 4 mg/mL SDV 1 mL IVP (16:59)
[2019-07-22] MEDS: pantoprazole DR 40 mg Tablet PO (16:59)
[2019-07-22] MEDS: oxyCODONE-APAP 5-325 mg Tablet 1 TAB PO (20:46)
[2019-07-23] VITALS (12 sets, daily range): BP systolic 107–143; BP diastolic 58–80; PULSE 51–81; RESP 16–20; TEMP 36.7–37; O2SAT 94–97
[2019-07-23 02:20] LABS: Basophils % 0.3 %; Eosinophils # 0.4 10^3/uL (0.0-0.8); Hematocrit 31.9 % (42.0-52.0); Hemoglobin 10.5 g/dL (11.7-16.6); Lymphocytes # 2.1 10^3/uL (0.8-4.8); Lymphocytes % 29.2 %; Mean Corpuscular HGB Conc 32.9 g/dL (30.0-36.0); Mean Corpuscular Hemoglobin 31.9 pg (28.0-34.0); Mean Platelet Volume 11.7 fL (7.4-10.4); Monocytes # 0.7 10^3/uL (0.2-0.9); Monocytes % 9.9 %; Neutrophils % 55.5 %; Nucleated Red Blood Cells % 0 %; Platelet Count 154 10^3/cmm (130-400); Red Blood Count 3.29 10^6/uL (4.1-5.3); Red Cell Distribution Width 12.6 % (12.1-15.1); White Blood Count 7.3 10^3/uL (4.0-10.0)
[2019-07-23 02:27] LABS: Anion Gap 10.4 (5-19); Blood Urea Nitrogen 12 mg/dL (8-23); Calcium 9.2 mg/dL (8.5-10.5); Carbon Dioxide 29 mmol/L (22-29); Chloride 104 mmol/L (98-107); Glomerular Filtration Rate 85.5 mL/min (90-130); Glucose 113 mg/dL (65-115); Osmolality Calculated 285 mOsm/kg (285-295); Potassium 4.4 mmol/L (3.5-5.1); Sodium 139 mmol/L (136-145)
[2019-07-23] MEDS: oxyCODONE-APAP 5-325 mg Tablet 1 TAB PO ×4 (04:00→18:00)
--- NOTE | 2019-07-23 06:00 | XR_ITS ---
WS: [id number] CHEST XRAY TECHNIQUE: Portable chest. CLINICAL INFORMATION: s/p chest tube replacement COMPARISON: July 22, 2019 FINDINGS: [address] right chest tubes in place. Tiny right apical lateral pneumothorax. Subcutaneous emphysem a right lateral chest wall. Tiny right pleural effusion. Subsegmental atelectasis right lung base. Ri ght lung is better aerated today. Improved pulmonary vascular congestion. Cardiomegaly. Left lung is well aerated. XR/XR chest 1V portable [id number] IMPRESSION: 1. [address] tubes in place with improved aeration of the right lung today . 2. Tiny residual right apical lateral pneumothorax. 3. Tiny right pleural effusion with subsegmental atelectasis right lung base.
--- NOTE | 2019-07-23 07:26 | P.PN_ITS ---
Subjective Subjective: Interval history: Hospital day #3 status post admission for multiple right-sided rib fractures with a hemothorax initially treated with a large bore chest tube which became the retracted. I placed 2 new chest tubes yesterday afternoon. Mr. Clarke is up in chair on rounds. Overall, he appears to be in good spirits and without debilitating discomfort. Obviously, he has quite tender on the right side from his rib fractures. Chest tube output reported 170 cc overnight. This morning's chest x-ray does show a bit of a retained effusion inferiorly though the lung on the right side is clearly improved with the no evidence for pneumothorax. No air leak with coughing and while on suction. Vitals/I&O/Wt Last Vital Signs Temp 98.3 F 07/23/19 03:55 Pulse 51 L 07/23/19 03:55 Resp 18 07/23/19 04:00 BP 107/61 07/23/19 03:55 Pulse Ox 94 07/23/19 03:55 07/22/19 07/23/19 07/23/19 22:59 06:59 14:59 Intake Total 500 / 500 240 / 740 Output Total 885 / 1010 970 / 1980 Balance -385 / -510 -730 / -1240 Physical Exam Chest: OTHER: Tenderness, as expected along the right chest wall. Chest tube insertion sites are clean and dry and intact intact Resp: OTHER: Improved breath sounds on the right side. Slightly decreased in the base posteriorly but clearly improved Data : 07/23/19 02:00 07/23/19 02:00 Micro: Microbiology 07/20/19 17:30 Urine Culture - Final Urine,Clean Catch A&P Assessment and plan (1) Hemothorax on right: Resolution of right pneumothorax and improved to drainage status post traumatic hemothorax. Plan: I will leave the chest tubes to suction today and plan to place to waterseal tomorrow and subsequent remove with a hopeful discharge on Saturday. Continue aggressive pulmonary toilet. Status: Acute Attestations Medical Necessity Statement*: Status post hemopneumothorax following rib fractures secondary to trauma Time Spent in Patient Care: 16 - 35 minutes Coding Level of Care Code Acute Telegrapher Agent for Morena Allen Diagnoses Hemothorax on right J94.2
[2019-07-23] MEDS: pantoprazole DR 40 mg Tablet PO (08:20)
--- NOTE | 2019-07-23 09:41 | PC.NURSE ---
Patient up in chair. Given Pain med at 8. Patient's pain was 4 upon reassessment at 9. SCDs on bilateral lower legs. Patient Chest Tube x 2. draining correctly. No wheezes or crackles, just some diminished in the lower bases. Patient talking to girlfriend on phone.
--- NOTE | 2019-07-23 17:48 | PC.NURSE ---
Patient's chest tube left (medial) had < 50 mls, right (lateral) had <50. Chest xray today, Dr. Ariza discussed with patient that no pneumothorax noted. Patient ambulated twice today, no shortness of breath or labored breath noted. Patient was active, sitting up and standing in room. Patient's appetite good, tolerating diet well.
[2019-07-23] MEDS: ketorolac 30 mg/mL INJ IVP (20:15)
[2019-07-24] VITALS (12 sets, daily range): BP systolic 126–164; BP diastolic 68–86; PULSE 52–77; RESP 16–19; TEMP 36.5–36.9; O2SAT 93–100
--- NOTE | 2019-07-24 06:00 | XR_ITS ---
WS: [id number] CHEST XRAY TECHNIQUE: Portable chest. CLINICAL INFORMATION: Status post replacement of original chest tube COMPARISON: July 23, 2019 FINDINGS: Heart: Normal cardiac silhouette. Lungs: Chronic emphysematous changes. Right chest tubes in place. Improved aeration right lung. Small right pleural effusion with right mid and lower lobe atelectasis. Tiny right lateral residual pneumo thorax. Improved subcutaneous emphysema. Left lung is well aerated. Bones: Normal visualized bony structures. XR/XR chest 1V portable [id number] IMPRESSION: 1. [address] tubes in place with tiny residual lateral pneumothorax. 2. Improved aeration right lung with small right pleural effusion with subsegm ental atelectasis in the right mid and lower lung. 3. Improved subcutaneous emphysema.
--- NOTE | 2019-07-24 06:11 | PM.PN ---
Subjective Subjective: Interval history: Other than expected chest wall discomfort, Mr. Clarke is doing well. Chest tube output proximal 120 cc overnight. Chest x-ray reveals what appears to probably be a developing right lower lobe contusions, which would not be inconsistent with his multiple rib fractures. There is still a small retained fluid collection but no obvious pneumothorax is seen. Vital signs remained stable. Vitals/I&O/Wt Last Vital Signs Temp 98.0 F 07/24/19 04:00 Pulse 75 07/24/19 04:00 Resp 18 07/24/19 04:00 BP 142/79 07/24/19 04:00 Pulse Ox 98 07/24/19 04:00 07/23/19 07/23/19 07/24/19 14:59 22:59 06:59 Intake Total 300 / 300 300 / 600 Output Total 2500 / 2500 780 / 3280 Balance -2200 / -2200 300 / -1900 -780 / -2680 Physical Exam Chest: OTHER: Chest tubes and associated dressings remain in good position. Chest wall stable. No subcutaneous emphysema. Resp: OTHER: Breath sounds are clear on the left and also on the right except in the base laterally and posteriorly Cardio: COMMON NORMALS: regular rate, regular rhythm and S1 normal heart sound RATE: regular rate RHYTHM: regular rhythm HEART SOUNDS: S1 normal and no murmurs Data : 07/23/19 02:00 07/23/19 02:00 A&P Assessment and plan (1) Hemothorax on right: Multiple right-sided rib fractures from direct trauma. Chest tubes remain in good position. Chest tube output is decreasing. Plan: I would leave chest tubes in position and on suction. We will repeat chest x-ray and a CBC in the morning. Continue aggressive pulmonary toilet. Status: Acute Attestations Medical Necessity Statement*: Multiple traumatic rib fractures and right hemothorax Time Spent in Patient Care: less than 15 minutes Coding Level of Care Code Acute Cytometry Technologist for Morean Allen Exam Problem Focused Diagnoses Hemothorax on right J94.2
[2019-07-24] MEDS: oxyCODONE-APAP 5-325 mg Tablet 1 TAB PO ×4 (07:35→19:19)
[2019-07-24] MEDS: pantoprazole DR 40 mg Tablet PO (11:33)
--- NOTE | 2019-07-24 18:39 | PC.NURSE ---
patient had < 50 per left and right chest tube for the shift.
[2019-07-24] MEDS: morphine 4 mg/mL SDV 1 mL IVP (23:49)
[2019-07-25] VITALS (9 sets, daily range): BP systolic 128–146; BP diastolic 63–80; PULSE 54–78; RESP 16–18; TEMP 36.5–36.9; O2SAT 93–97
[2019-07-25] MEDS: oxyCODONE-APAP 5-325 mg Tablet 1 TAB PO ×3 (05:21→20:19)
[2019-07-25 05:30] LABS: Basophils % 0.4 %; Eosinophils # 0.6 10^3/uL (0.0-0.8); Eosinophils % 6.8 %; Hematocrit 37.6 % (42.0-52.0); Hemoglobin 12.2 g/dL (11.7-16.6); Lymphocytes # 2.7 10^3/uL (0.8-4.8); Lymphocytes % 30.2 %; Mean Corpuscular HGB Conc 32.4 g/dL (30.0-36.0); Mean Corpuscular Hemoglobin 31.4 pg (28.0-34.0); Mean Corpuscular Volume 96.9 fL (80-94); Mean Platelet Volume 11.1 fL (7.4-10.4); Monocytes # 0.8 10^3/uL (0.2-0.9); Monocytes % 8.9 %; Neutrophils # 4.8 10^3/uL (1.8-7.7); Neutrophils % 53.5 %; Nucleated Red Blood Cells % 0 %; Platelet Count 261 10^3/cmm (130-400); Red Blood Count 3.88 10^6/uL (4.1-5.3); Red Cell Distribution Width 12.4 % (12.1-15.1); White Blood Count 9.1 10^3/uL (4.0-10.0)
[2019-07-25 05:53] LABS: Anion Gap 13.4 (5-19); Blood Urea Nitrogen 17 mg/dL (8-23); Calcium 10.1 mg/dL (8.5-10.5); Carbon Dioxide 31 mmol/L (22-29); Chloride 101 mmol/L (98-107); Glomerular Filtration Rate 75.7 mL/min (90-130); Glucose 105 mg/dL (65-115); Osmolality Calculated 289 mOsm/kg (285-295); Potassium 4.4 mmol/L (3.5-5.1); Sodium 141 mmol/L (136-145)
--- NOTE | 2019-07-25 06:00 | XRR_ITS ---
PROCEDURE INFORMATION: Exam: XR Chest, 1 View Exam date and time: 07/25/2019 5:43 AM Age: 63 years old Clinical indication: Device placement; Patient HX: F/u traumatic pneumothorax with chest tube placement; Additional info: Traumatic hemothorax with chest tube replacement; Possible developing contusion TECHNIQUE: Imaging protocol: XR of the chest Views: 1 view. COMPARISON: CR XR chest 1V portable [id number] 07/24/2019 5:31 AM FINDINGS: Right chest tube with tip overlying the right upper thorax, similar to prior position. Second right chest tube with tip overlying the right mid thorax, similar to prior position. Heart size within normal limits. Large area of airspace opacity (atelectasis and/or consolidation), increased from prior study. The left lung is clear. Small right pneumothorax laterally, similar to prior study. Pulmonary vasculature within normal limits. XR/XR chest 1V portable [id number] IMPRESSION: 1. Large area of airspace opacity (atelectasis and/or consolidation), increased from prior study. 2. Small right pneumothorax laterally, similar to prior study.
[2019-07-25] MEDS: pantoprazole DR 40 mg Tablet PO (08:45)
[2019-07-25] MEDS: ketorolac 30 mg/mL INJ IVP ×2 (08:46→15:06)
--- NOTE | 2019-07-25 12:53 | PM.PN ---
Subjective Subjective: Interval history: Postop day #3 status post replacement of the original chest tube placed on the with 2 smaller more directed pleural tubes. No complaints. Up in chair. Chest tube output about 100 cc past 24 hours. Becoming more serous. I have personally reviewed today's chest x-ray. I do believe the area of atelectasis and perhaps contusion in the right lower lobe is slowly improving. No substantial change in the small pleural effusion in the costodiaphragmatic angle. Chest tubes appear to be in good position. Vitals/I&O/Wt Last Vital Signs Temp 97.7 F 07/25/19 11:44 Pulse 54 L 07/25/19 11:44 Resp 18 07/25/19 11:44 BP 132/63 07/25/19 11:44 Pulse Ox 96 07/25/19 11:44 07/24/19 07/25/19 07/25/19 22:59 06:59 14:59 Intake Total 480 / 1380 480 / 480 Output Total 300 / 1075 640 / 1715 220 / 220 Balance 180 / 305 -640 / -335 260 / 260 Physical Exam Chest: COMMONS NORMALS: inspection of chest normal (Chest tubes are in good position. Dressings are dry.) Resp: COMMON NORMALS: normal respiratory effort, no retractions and clear to auscultation bilaterally EFFORT & INSPECTION: Yes able to speak in complete sentences AUSCULTATION: clear to auscultation bilaterally Data : 07/25/19 05:12 07/25/19 05:12 A&P Assessment and plan (1) Hemothorax on right: Multiple rib fractures with traumatic hemothorax currently with 2 chest tube in position and decreasing chest tube output I will continue chest tubes for suction by Pleur-evac for another 24 hours and then consider placing waterseal. Continue aggressive pulmonary toilet. I do believe the chest tubes will need to be in another 2 perhaps 3 days. Status: Acute Attestations Medical Necessity Statement*: Multiple rib fractures with traumatic hemothorax secondary to trauma Time Spent in Patient Care: less than 15 minutes Coding Level of Care Code Acute Refrigerated National Truck Driver for Morena Allen Diagnoses Hemothorax on right J94.2
--- NOTE | 2019-07-25 22:54 | PC.NURSE ---
Reassessed pain level after administering oxycodone. Pain level is now a 0 on scale 0-10. Patient breathing is even and unlabored.
[2019-07-26] VITALS (9 sets, daily range): BP systolic 120–154; BP diastolic 64–88; PULSE 50–76; RESP 16–19; TEMP 36.6–37.2; O2SAT 95–97
[2019-07-26] MEDS: oxyCODONE-APAP 5-325 mg Tablet 1 TAB PO ×4 (02:58→21:59)
--- NOTE | 2019-07-26 03:46 | PC.NURSE ---
REASSESSED PT PAIN AFTER RECEIVING OXYCODONE. REPORTED PAIN AT 0 ON SCALE 0-10. CURRENTLY RESTING IN CHAIR SIGNING, BREATHING IS EVEN AND UNLABORED. CALL LIGHT AND BEDSIDE TABLE WITHIN REACH.
[2019-07-26] MEDS: pantoprazole DR 40 mg Tablet PO (08:18)
[2019-07-27] VITALS (9 sets, daily range): BP systolic 118–154; BP diastolic 64–76; PULSE 49–57; RESP 17–24; TEMP 36.6–36.9; O2SAT 96–98
[2019-07-27] MEDS: oxyCODONE-APAP 5-325 mg Tablet 1 TAB PO ×3 (04:16→16:25)
--- NOTE | 2019-07-27 06:00 | XR_ITS ---
WS: [id number] PORTABLE CHEST HISTORY: chest tubes now on water seal with decreasing tube output COMPARISON: 07/25/2019 Right-sided chest tubes x2 have been removed. No pneumothorax identified. Small RIGHT pleural effusio n and atelectasis. Pleural fluid along the RIGHT fissure is rounded. LEFT lung is well expanded. Small RIGHT pleural effusion. Cardiac size: Normal. Mediastinum/Aorta: Normal mediastinum. No osseous abnormality seen. XR/XR chest 1V portable [id number] IMPRESSION: 1. Interval removal of 2 RIGHT thoracotomy tubes. No pneumothorax is identifie d. 2. RIGHT lung atelectasis and pleural effusion. Aeration has slightly decrease d since the prior study of 07/25/2019 within the RIGHT lung.
--- NOTE | 2019-07-27 06:05 | PM.PN ---
Subjective Subjective: Interval history: Afebrile. Vital signs stable. Chest tube output maximum of 50 cc past 24 hours. Chest tubes DC'd. Chest x-ray pending. Vitals/I&O/Wt Last Vital Signs Temp 97.9 F 07/27/19 04:00 Pulse 55 L 07/27/19 04:00 Resp 17 07/27/19 04:16 BP 154/64 07/27/19 04:00 Pulse Ox 96 07/27/19 04:00 07/26/19 07/26/19 07/27/19 14:59 22:59 06:59 Intake Total 480 / 480 1340 / 1820 200 / 2020 Output Total 1930 / 1930 1205 / 3135 Balance 480 / 480 -590 / -110 -1005 / -1115 Physical Exam Chest: COMMONS NORMALS: inspection of chest normal (Chest tube sites clean and intact after chest tube removal) Resp: COMMON NORMALS: normal respiratory effort (Pulling about 1500 cc on incentive spirometer) and clear to auscultation bilaterally AUSCULTATION: clear to auscultation bilaterally Data : 07/25/19 05:12 07/25/19 05:12 A&P Assessment and plan (1) Hemothorax on right: Resolving hemothorax secondary to traumatic rib fractures. Chest tube DC'd. Awaiting chest x-ray this morning. If chest x-ray is appropriate and patient is doing well this morning, will plan to discharge later today Status: Acute Attestations Medical Necessity Statement*: Hemothorax secondary to traumatic rib fractures Time Spent in Patient Care: 16 - 35 minutes Coding Level of Care Code Acute Returned Telephone Equipment Appraiser for Morena Allen Diagnoses Hemothorax on right J94.2
[2019-07-27] MEDS: pantoprazole DR 40 mg Tablet PO (08:47)
--- NOTE | 2019-07-27 16:31 | P.DS_ITS ---
Discharge Providers Date of Admission: 07/20/19 12:38 Date of Discharge: July 27, 2019 Attending Provider at Admission: Martín Ariza MD Attending Provider at Discharge: Martín Ariza MD Diagnoses at Discharge Discharge Diagnosis (1) Hemothorax on right: Status: Acute Reason for Visit Reason for Visit: Reason For Visit: PNEUMOTHORAX Hospital Course Discharge Summary: Patient is a 63-year-old gentleman admitted through the emergency services at [facility] on July 19 after presenting with complaints of increasing shortness of breath and substantial right-sided chest discomfort which began the day previously when he was struck on his side by a truss 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 He was found to have a several right-sided rib fractures and a substantial right pneumothorax and a large bore right chest tube was placed in the emergency department by Dr. Stover.. He initially was treated with active chest tube suction to Pleur-evac along with analgesia and pulmonary toilet. He began developing increasing haziness consistent with probable delayed hemothorax or pulmonary contusion. On July 21, I replaced his large bore tube with a 228 [place] thoracic drains, 1 apically and 1 low toward the diaphragm. We did obtain 700 cc of hemothorax over the next 24 hours. It appears radiographically that he most probably had a delayed right lower lobe pulmonary contusion related to his multiple right-sided rib fractures. He was quite diligent with his pulmonary toilet and use of incentive spirometry. Right-sided chest discomfort steadily improved through his hospital course. I separately removed his chest tubes earlier today. Follow-up chest x-ray reveals no pneumothorax but continued haziness of the right lower lobe which I do suspect is a pulmonary contusion. He did have a drop in his hemoglobin though this is now stabilized. Vital signs have always been stable. He is eager for discharge to home. He will be discharged today in stable condition. He will follow-up in my clinic in 3 days on July 29 with a chest x-ray. Physical Exam Chest: CHEST: Yes localized rib tenderness with anteroposterior compression (Several right-sided rib fractures) Resp: COMMON NORMALS: clear to auscultation bilaterally EFFORT & INSPECTION: Yes able to speak in complete sentences, Yes symmetric chest movement and No abnormal respiratory pattern AUSCULTATION: clear to aus cultation bilaterally Cardio: COMMON NORMALS: regular rate, regular rhythm, no gallops and no rub RATE: regular rate RHYTHM: regular rhythm PERIPHERAL PULSES: radial pulses present positive bilateral 2+ Discharge Data Data Completed and Pending: Completed Studies During Hospitalization Category Date Time Status CT head wo con* 7 0450 Stat Cat Scan 07/20/19 11:13 Completed XR chest 1V mila ble [id number] Routine Exams 07/21/19 06:00 Completed XR chest 1V mila ble [id number] Routine Exams 07/22/19 06:00 Completed XR chest 1V mila ble [id number] Routine Exams 07/22/19 15:16 Completed XR chest 1V mila ble [id number] Routine Exams 07/23/19 06:00 Completed XR chest 1V mila ble [id number] Routine Exams 07/24/19 06:00 Completed XR chest 1V mila ble [id number] Routine Exams 07/25/19 06:00 Completed XR chest 1V mila ble [id number] Routine Exams 07/27/19 06:00 Completed XR chest 1V mila ble [id number] Stat Exams 07/20/19 11:13 Completed XR chest 1V mila ble [id number] Stat Exams 07/20/19 12:24 Completed XR chest 1V mila ble [id number] Stat Exams 07/21/19 17:33 Completed XR shoulder RT mi n 2V* [id number] Routin e Exams 07/21/19 17:35 Completed Vitals: Last Vital Signs Temp 98.3 F 07/27/19 15:37 Pulse 54 L 07/27/19 15:37 Resp 20 H 07/27/19 16:25 BP 118/68 07/27/19 15:37 Pulse Ox 97 07/27/19 15:37 Discharge Plan Discharge Patient Disposition: Home, Self-Care Condition: Stable Prescriptions: [place] 5-325 mg tablet 1 tab PO Q6H PRN (Reason: pain) Qty: 20 RF: 0 No Action No Known Home Medications RF: 0 Discharge Orders: Discharge Order (Routine); Ordered 07/27/19 Ordered By: Martín Ariza Other Ambulatory Orders: XR chest 1V portable [id number] (Routine) Timeframe: [id number] Location: Determined by Patient Ordered By: Martín Ariza Referrals: Martín Ariza MD [Physician] - 07/30/19 2:30 pm ( portable cxr on day of and prior to clinic visit on July 29 PLEASE COME ONE HOUR BEFORE APPOINTMENT FOR EXRAY) Dorothea Mendoza MD [Physician] - 08/06/19 2:00 pm (Please bring a copy of your current medication list with you to this appointment.) Discharge Diet: Usual diet Discharge Activity: Limit activity as instructed Patient Instructions: Hydrocodone/Acetaminophen (By mouth), Traumatic Pneumothorax (DC) Activity Restrictions/Additional Instructions: May remove bandage in 2 days May begin daily showers in 2 days May recover chest tube sites as desired No swimming or tub baths x 2 weeks No ointments on incision Report drainage, redness, heat, increased pain, worsening shortness of breath, or swelling to clinic Frequent use of incentive spirometer.[facility] [facility] exray ON JULY 29 ONE HOUR BEFORE APPOINTMENT WITH DR ARIZA Discharge Attestations Time Spent in Discharge Care*: less than 30 min Specific Discharge Activities: Specific discharge activities: educating patient, discussing with immigration case worker/social workers/dc planners and evaluating patient/reviewing data Status at Discharge: Cognitive status at discharge: cognitively intact , Behavioral status at discharge: cooperative , Functional status at discharge: independent ambulation Overall status at discharge: patient is progressing back to baseline Quality Metrics Clinical Quality Measures During this hospital stay, did patient experience: None Coding Level of Care Code Acute [employer] Diagnoses Hemothorax on right J94.2
== END 2019-07-27 17:49 | disposition home or self-care (01) | DRG 200 ==
LOC: ER 11:29 → ICU 13:21 → MEDSURG 07-21 10:42
PROVIDERS: Admitting Provider Thoracic Surgery (Cardiothoracic Vascular Surgery); Emergency Provider Family Medicine; Visit Provider Thoracic Surgery (Cardiothoracic Vascular Surgery)
PROC: 0W9930Z Drainage of Right Pleural Cavity with Drainage Device, Percutaneous Approach (ICD-10-PCS; CPT 32551; principal; 2019-07-22 15:00)
DX: S27.0XXA Traumatic pneumothorax, initial encounter (principal); S22.41XA Multiple fractures of ribs, right side, initial encounter for closed fracture; W20.8XXA Other cause of strike by thrown, projected or falling object, initial encounter; Y92.89 Other specified places as the place of occurrence of the external cause; F17.210 Nicotine dependence, cigarettes, uncomplicated
CPT/HCPCS: 12345; 32551; 36415; 36416; 70450; 71045; 73030; 80048; 80053; 81001; 82962; 85025; 85610; 85730; 86850; 86900; 86920; 87086; 93005; 96375; 99283; J1885; J2001; J2250; J2270; J2704; J3010; J7030

== ENCOUNTER 2019-07-30 13:19 | Outpatient (CLI) | payer OTHER, SELFPAY ==
--- NOTE | 2019-07-30 14:18 | XR_ITS ---
WS: [id number] PORTABLE CHEST HISTORY: s/p hemothorax COMPARISON: 07/27/2019 Pleural thickening with atelectatic changes throughout the mid and lower RIGHT lung. Mild improvement since the prior study. There is still a small amount of pleural thickening or effusion. No pleural e ffusion or pneumothorax. Cardiac size: Normal. Mediastinum/Aorta: Normal mediastinum. No osseous abnormality seen. XR/XR chest 1V portable [id number] IMPRESSION: Improving pleural-parenchymal disease within the RIGHT mid to lower thorax. Imp roving atelectasis and pleural fluid.
== END 2019-07-30 13:20 | disposition home or self-care (01) ==
LOC: RAD 13:20
PROVIDERS: Visit Provider Thoracic Surgery (Cardiothoracic Vascular Surgery)
DX: J94.2 Hemothorax (principal)
CPT/HCPCS: 71045

== ENCOUNTER 2019-11-10 06:00 | Outpatient (RCR) | payer OTHER, SELFPAY | END 2019-11-30 23:59 | disposition home or self-care (01) | LOC: MPT 06:00 | PROVIDERS: PCP Family Medicine; Referring Provider Family Medicine; Visit Provider Family Medicine | DX: M25.511 Pain in right shoulder (principal); M89.8X1 Other specified disorders of bone, shoulder | CPT/HCPCS: 97110; 97140; 97161 ==